=== PATIENT | female | born 1960 | race Caucasian/White ===

== ENCOUNTER 2017-10-23 12:36 | Outpatient (CLI) | payer BC | END 2017-10-23 12:37 | disposition home or self-care (01) | LOC: BICMAMMO 12:36 | PROVIDERS: ATTEND Family Medicine | DX: Z12.31 Encounter for screening mammogram for malignant neoplasm of breast (principal); Z80.3 Family history of malignant neoplasm of breast | CPT/HCPCS: 77063; 77067 ==

== ENCOUNTER 2017-12-07 10:28 | Outpatient (CLI) | payer BC ==
--- NOTE | 2017-12-07 11:55 | ULT ---
RENAL ULTRASOUND: COMPARISON: Renal ultrasound 11/25/16. HISTORY: Followup of left renal cyst. TECHNIQUE: Multiplanar, canada scale, and color Doppler images were obtained in a renal ultrasound. FINDINGS: The right kidney is normal in echogenicity without focal lesions, hydronephrosis, or calculus and henrry sures 10.2 cm in length. There is an anechoic cyst in the hilar portion of the left kidney which contains simple septations. This measures 3.1 cm in greatest dimension and has not changed significantly compared to the prior ex amination. There is no evidence of hydronephrosis or calculi in the left kidney which measures 11.6 cm in length. No abnormality is seen in the urinary bladder. IMPRESSION: Stable left renal cyst. POS: [facility]
== END 2017-12-07 10:29 | disposition home or self-care (01) ==
LOC: SCSULT 10:28
PROVIDERS: ATTEND Urology
DX: Q61.01 Congenital single renal cyst (principal)
CPT/HCPCS: 76770

== ENCOUNTER 2018-10-25 11:35 | Outpatient (CLI) | payer BC ==
--- NOTE | 2018-10-28 08:58 | MMO ---
MAMMOGRAM FINDINGS: There are benign appearing calcifications seen in both breasts. There are no suspicious masses, calcifications or areas of architectural distortion. IMPRESSION: CALCIFICATIONS IN BOTH BREASTS ARE BENIGN. A ROUTINE FOLLOW-UP MAMMOGRAM IN 1 YEAR IS RECOMMENDED. ACR BI-RADS Category 2 - Benign finding
== END 2018-10-25 11:36 | disposition home or self-care (01) ==
LOC: BICMAMMO 11:35
PROVIDERS: ATTEND Family Medicine
DX: Z12.31 Encounter for screening mammogram for malignant neoplasm of breast (principal); R92.1 Mammographic calcification found on diagnostic imaging of breast
CPT/HCPCS: 77063; 77067

== ENCOUNTER 2019-04-11 08:54 | Outpatient (CLI) | payer BC ==
--- NOTE | 2019-04-11 10:01 | ULT ---
ULTRASOUND ABDOMEN COMPLETE: DATE: 04/11/2019 HISTORY: 58-year-old female with generalized abdominal pain FINDINGS: Gallbladder: Normal wall thickness. No gallstones or sludge identified. No pericholecystic fluid. A f ew tiny gallbladder polyps, 4 mm, at fundus. Liver: Normal parenchymal echogenicity. Bilateral kidneys: No hydronephrosis. 3 x 3.5 cm left midpole parapelvic cyst. Pancreas: Nonspecific sonographic appearance. Common duct caliber: 5 mm. Abdominal aorta: No aneurysm Inferior vena cava: Unremarkable where visualized. Spleen: No splenomegaly IMPRESSION: 1. No acute findings. 2. 3.5 cm left renal parapelvic cyst. 3. A few tiny gallbladder polyps. 4. Otherwise negative.
== END 2019-04-11 08:55 | disposition home or self-care (01) ==
LOC: BICULT 08:54
PROVIDERS: ATTEND Family Medicine
DX: R10.84 Generalized abdominal pain (principal); N28.1 Cyst of kidney, acquired; K82.4 Cholesterolosis of gallbladder
CPT/HCPCS: 36415; 76700; 80053; 82150; 83690; 85025

== ENCOUNTER 2020-02-29 14:06 | Outpatient (CLI) | payer BC ==
--- NOTE | 2020-02-29 15:42 | MMO ---
Bilateral MAMMO Bilat Screen [facility]. CLINICAL HISTORY: Patient is 59 years old and is seen for screening. The patient has the following family history of breast cancer: paternal aunt, great and 2 cousin gender unknowns, paternal. The patient has no personal history of cancer. The patient has a history of left Cyst Aspiration - benign. VIEWS: The views performed were: bilateral craniocaudal with tomosynthesis and bilateral mediolateral oblique with tomosynthesis. FILMS COMPARED: The present examination has been compared to prior imaging studies performed at [facility], [place] on 06/14/2015, 09/01/2016, 10/23/2017 and 10/25/2018. This study has been interpreted with the assistance of computer-aided detection. MAMMOGRAM FINDINGS: The breasts are heterogeneously dense, which could obscure a lesion on mammography. There are no suspicious masses, suspicious calcifications, or new areas of architectural distortion. IMPRESSION: THERE IS NO MAMMOGRAPHIC EVIDENCE OF MALIGNANCY. A ROUTINE FOLLOW-UP MAMMOGRAM IN 1 YEAR IS RECOMMENDED. THE RESULTS OF THIS EXAM WERE SENT TO THE PATIENT. ACR BI-RADS Category 1 - Negative MAMMOGRAPHY NOTE: 1. A negative mammogram report should not delay a biopsy if a dominant of clinically suspicious mass is present. 2. Approximately 10% to 15% of breast cancers are not detected by mammography. 3. Adenosis and dense breasts may obscure an underlying neoplasm. Reported by: JOSE ANTONIO GONZALEZ MD Electonically Signed: [id number]
== END 2020-02-29 14:07 | disposition home or self-care (01) ==
LOC: BICMAMMO 14:06
PROVIDERS: ATTEND Family Medicine
DX: Z12.31 Encounter for screening mammogram for malignant neoplasm of breast (principal); Z91.89 Other specified personal risk factors, not elsewhere classified; Z80.3 Family history of malignant neoplasm of breast
CPT/HCPCS: 36415; 77063; 77067; 80053; 80061

== ENCOUNTER 2020-06-07 09:00 | Outpatient (CLI) | payer BC ==
--- NOTE | 2020-06-07 09:48 | ULT ---
GALLBLADDER ULTRASOUND: HISTORY:Abnormal ultrasound of 04/11/2019. Follow-up gallbladder polyps FINDINGS: The liver demonstrates no evidence of intrahepatic biliary ductal dilatation. There is a 1.9 x 1.1 x 1.7 cm cyst in the right lobe of the liver. No gallstones, gallbladder wall thickening or pericholecystic fluid are seen. Multiple normal shadowi ng immobile echogenic foci arising from the wall of the gallbladder again seen measuring up to 5 mm. The right kidney and visualized portions of the pancreas are normal. The common duct [id number] in diameter. No free fluid is seen in the Flores's pouch. IMPRESSION: 1. Gallbladder polyps measuring up to 5 mm 2. Hepatic cyst.
== END 2020-06-07 09:01 | disposition home or self-care (01) ==
LOC: SCSULT 09:00
PROVIDERS: ATTEND Internal Medicine Gastroenterology
DX: K82.4 Cholesterolosis of gallbladder (principal); K76.89 Other specified diseases of liver
CPT/HCPCS: 76705

== ENCOUNTER 2023-04-02 14:22 | Outpatient (CLI) | payer BC | END 2023-04-02 14:23 | disposition home or self-care (01) | LOC: BICMAMMO 14:22 | PROVIDERS: ATTEND Family Medicine | DX: Z12.31 Encounter for screening mammogram for malignant neoplasm of breast (principal); Z98.890 Other specified postprocedural states | CPT/HCPCS: 77063; 77067 ==

== ENCOUNTER 2024-02-10 08:43 | Outpatient (CLI) | payer BC | END 2024-02-10 08:44 | disposition home or self-care (01) | LOC: BICMAMMO 08:43 | PROVIDERS: ATTEND Family Medicine | DX: N63.21 Unspecified lump in the left breast, upper outer quadrant (principal) | CPT/HCPCS: 77066; G0279 ==